=== PATIENT | male | born 1985 | race Caucasian/White ===

== ENCOUNTER 2020-05-12 04:41 | Observation (INO) | payer BC ==
[2020-05-12 04:54] VITALS: BMI 49.4
[2020-05-12] MEDS ORDERED: Zolpidem Tartrate 5 MG TAB PO PRN (05:34)
[2020-05-12] MEDS ORDERED: Ondansetron PF 4 MG/2 ML Vial IVP PRN (05:34)
[2020-05-12] MEDS ORDERED: Guaifenesin DM 100-10/5 ML UDCUP PO PRN (05:34)
[2020-05-12] MEDS ORDERED: Acetaminophen 325 MG TAB PO PRN (05:34)
[2020-05-12] MEDS ORDERED: ALPRAZolam 0.25 MG TAB PO PRN (05:36)
[2020-05-12] MEDS ORDERED: Sodium Chloride 0.9% (PF) 10 ML VIAL FS PRN (05:45)
[2020-05-12] MEDS ORDERED: Sodium Chloride 0.9% 500 ML IV SCH (05:45)
[2020-05-12 06:01] LABS: #Eosinphils 0.3 10x3/uL (0.0-0.5); #Monocytes 0.6 10x3/uL (0.0-1.1); #Neutrophils 7.3 10x3/uL (1.5-8.4); %Basophils 0.2 % (0.0-2.0); %Eosinophils 3.1 % (0.0-6.0); %Lymphocytes 19.4 % (18.0-47.0); %Neutrophils 71.1 % (40.0-75.0); Mean Corpuscular HGB CONC 32.3 g/dL (32.0-36.0); Mean Corpuscular Hemoglobin 28.8 pg (27.0-33.0); Mean Corpuscular Volume 89.1 fl (81.2-95.1); Mean Platelet Volume 10.6 fl (7.4-10.4); Platelet Count 232 10x3/uL (150-450); RBC Distribution Width 12.8 % (11.5-14.5); Red Blood Cell (RBC) Count 4.86 10x6/uL (4.32-5.72); White Blood Cell (WBC) Count 10.3 10x3/uL (3.5-10.5)
[2020-05-12] MEDS: Sodium Chloride 0.9% 1,000 ML IV SCH ×3 (06:10→21:54)
[2020-05-12] MEDS: Pantoprazole 40 MG VIAL IVP SCH ×2 (09:07→21:08)
[2020-05-12 12:03] LABS: Hemoglobin 13.2 g/dL (13.5-17.5)
[2020-05-12 16:21] LABS: SARS-CoV-2 PCR by NAA Not Detected (NotDetected)
[2020-05-12 18:19] LABS: #Eosinphils 0.3 10x3/uL (0.0-0.5); #Monocytes 0.4 10x3/uL (0.0-1.1); #Neutrophils 4.4 10x3/uL (1.5-8.4); %Basophils 0.3 % (0.0-2.0); %Eosinophils 4.3 % (0.0-6.0); %Lymphocytes 25.4 % (18.0-47.0); %Monocytes 5.3 % (0.0-10.0); %Neutrophils 64.4 % (40.0-75.0); Hemoglobin 13.3 g/dL (13.5-17.5); Mean Corpuscular Hemoglobin 28.5 pg (27.0-33.0); Mean Corpuscular Volume 89.3 fl (81.2-95.1); Mean Platelet Volume 11.1 fl (7.4-10.4); Platelet Count 196 10x3/uL (150-450); Red Blood Cell (RBC) Count 4.66 10x6/uL (4.32-5.72); White Blood Cell (WBC) Count 6.8 10x3/uL (3.5-10.5)
[2020-05-13 05:31] LABS: #Eosinphils 0.3 10x3/uL (0.0-0.5); #Monocytes 0.5 10x3/uL (0.0-1.1); #Neutrophils 5.5 10x3/uL (1.5-8.4); %Basophils 0.2 % (0.0-2.0); %Lymphocytes 24.6 % (18.0-47.0); %Monocytes 5.9 % (0.0-10.0); %Neutrophils 64.9 % (40.0-75.0); Hemoglobin 13.8 g/dL (13.5-17.5); Mean Corpuscular HGB CONC 32.9 g/dL (32.0-36.0); Mean Corpuscular Hemoglobin 29.2 pg (27.0-33.0); Mean Corpuscular Volume 88.8 fl (81.2-95.1); Platelet Count 219 10x3/uL (150-450); RBC Distribution Width 12.3 % (11.5-14.5); Red Blood Cell (RBC) Count 4.73 10x6/uL (4.32-5.72); White Blood Cell (WBC) Count 8.5 10x3/uL (3.5-10.5)
[2020-05-13 05:42] LABS: Anion Gap 15 mmol/L (10-20); BUN (Urea Nitrogen) 9 mg/dL (8.9-20.6); Calc. Creatinine Clearance 288 mL/min (70-130); Calcium 8.5 mg/dL (7.8-10.44); Carbon Dioxide 23 mmol/L (22-29); Chloride 104 mmol/L (98-107); Glucose 82 mg/dL (70-105); Potassium 3.7 mmol/L (3.5-5.1); Sodium 138 mmol/L (136-145)
[2020-05-13] MEDS: Pantoprazole 40 MG VIAL IVP SCH (08:24)
[2020-05-13] MEDS ORDERED: Cholecalciferol 1,000 UNITS (25 MCG) TAB PO SCH (09:00)
[2020-05-13] MEDS: Sodium Chloride 0.9% 1,000 ML IV SCH (15:47)
[2020-05-13 16:20] VITALS: BP 141/93; TEMP 98.2
== END 2020-05-13 19:24 | disposition home or self-care (01) ==
LOC: INTOOBSV 04:41 → CSHTELE 04:41
PROVIDERS: ADMIT Student in an Organized Health Care Education/Training Program; ATTEND Family Medicine
DX: K92.2 Gastrointestinal hemorrhage, unspecified (principal); N28.9 Disorder of kidney and ureter, unspecified; F17.210 Nicotine dependence, cigarettes, uncomplicated; E66.01 Morbid (severe) obesity due to excess calories; E55.9 Vitamin D deficiency, unspecified; Z79.899 Other long term (current) drug therapy; F32.9 Major depressive disorder, single episode, unspecified; F41.9 Anxiety disorder, unspecified; Z20.822 Contact with and (suspected) exposure to COVID-19
CPT/HCPCS: 36415; 80048; 85025; 86850; 86900; 86901; 87635; 96374; 96376; C9113; G0378; J7030; J7050; U0003; U0005

== ENCOUNTER 2024-01-23 09:25 | Outpatient (CLI) | payer BC | END 2024-01-23 09:26 | disposition home or self-care (01) | LOC: CSHULT 09:25 | PROVIDERS: ATTEND Nurse Practitioner Family | DX: R74.8 Abnormal levels of other serum enzymes (principal); K76.0 Fatty (change of) liver, not elsewhere classified | CPT/HCPCS: 76700 ==

== ENCOUNTER 2024-10-14 14:22 | Outpatient (CLI) | payer BC | END 2024-10-14 14:23 | disposition home or self-care (01) | LOC: CSHDTY/OP 14:22 | PROVIDERS: ATTEND Nurse Practitioner Family | DX: E11.65 Type 2 diabetes mellitus with hyperglycemia (principal) | CPT/HCPCS: 97802 ==